=== PATIENT | female | born 1970 | race Caucasian/White ===

== ENCOUNTER → 2016-11-08 | Outpatient (CLI) | payer OTHER ==
[~2016-11-08] MED LIST: ALPR1TAB2 PO; AMIT10TA PO; AMLO1CAP10 PO; CARI350T14 PO; CETI10TA24 PO; GEMF600T3 PO; METF500T9 PO; METO-93 PO; OXYC-307 PO; RANI150T8 PO; SERT100T PO; ZOLP10TA PO
== END | disposition home or self-care (01) ==
LOC: CFH 14:45
PROVIDERS: ATTEND Family Medicine
DX: Z12.31 Encounter for screening mammogram for malignant neoplasm of breast (principal)
CPT/HCPCS: 77063; G0202

== ENCOUNTER → 2017-12-16 | Outpatient (CLI) | payer OTHER ==
[~2017-12-16] MED LIST changes: +ATOR10TA PO; +BENA20TA4 PO; +CYCL-259 PO; +FENO160T PO; +FENT1PAT77 TP; -GEMF600T3 PO; +GEMF600T4 PO; +NAPR-685 PO; +OMEP40CA6 PO; +RANI150T23 PO; -RANI150T8 PO
[2017-12-16 14:47] LABS: BASOPHILS # (AUTO) 0.04 x10^3/uL (0-0.1); BASOPHILS % (AUTO) 1 % (0-1); EOSINOPHILS # (AUTO) 0.28 x10^3/uL (0-0.4); EOSINOPHILS % (AUTO) 4 % (1-7); LYMPHOCYTES # (AUTO) 2.45 x10^3/uL (1-3.4); LYMPHOCYTES % (AUTO) 33 % (22-44); MD NO; MEAN CORPUSCULAR HEMOGLOBIN 26.1 pg (27.0-34.8); MEAN CORPUSCULAR HGB CONC 33.4 g/dL (32.4-35.8); MEAN CORPUSCULAR VOLUME 78.1 fL (80-100); MEAN PLATELET VOLUME 7.2 fL (7.4-10.4); MONOCYTES # (AUTO) 0.34 x10^3/uL (0.2-0.8); MONOCYTES % (AUTO) 5 % (2-9); NEUTROPHILS # (AUTO) 4.41 x10^3/uL (1.8-6.8); NEUTROPHILS % (AUTO) 59 % (42-75); PLATELET COUNT 410 x10^3/uL (130-400); RED BLOOD COUNT 5.11 x10^6/uL (3.82-5.3); RED CELL DISTRIBUTION WIDTH 15.7 % (9.6-15.2)
[2017-12-16 14:50] LABS: HCG UR SG 1.014 (1.003-1.030)
[2017-12-16 14:55] LABS: MICROSCOPIC INDICATED
[2017-12-16 15:00] LABS: ALBUMIN 3.7 g/dL (3.4-5.0); ANION GAP 9 mmol/L (5-15); CALCIUM 8.7 mg/dL (8.5-10.1); CHLORIDE 103 mmol/L (98-107)
[2017-12-16 15:03] LABS: ALANINE AMINOTRANSFERASE 41 U/L (12-78); ALKALINE PHOSPHATASE 39 U/L (45-117); BILIRUBIN,TOTAL 0.3 mg/dL (0.2-1.0); TOTAL PROTEIN 7.5 g/dL (6.4-8.2)
[2017-12-16 15:08] LABS: CULTURE INDICATED? NO
[2017-12-16 15:25] LABS: INTERNATIONAL NORMALIZED RATIO 0.99 (0.93-1.1); PROTHROMBIN TIME 10.2 Seconds (9.6-11.5)
== END | disposition home or self-care (01) ==
LOC: STAR 13:33
PROVIDERS: ATTEND Neurological Surgery
DX: Z01.818 Encounter for other preprocedural examination (principal); M47.12 Other spondylosis with myelopathy, cervical region
CPT/HCPCS: 36415; 80053; 81001; 81025; 85025; 85610; 85730; 93005